=== PATIENT | female | born 1990 | race Caucasian/White ===

== ENCOUNTER 2017-04-16 00:01 | Emergency (ER) | payer BC, OTHER ==
[2017-04-16 00:24] VITALS: BP 112/68
[2017-04-16] MEDS ORDERED: LIDOCAINE 1% INJ-PF (10 MG/ML) 30 ML SDV INJ ONE (01:11)
[2017-04-16] MEDS ORDERED: BUPIVACAINE HCL 0.5 % INJ/PF 30 ML SDV INJ ONE (01:22)
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
[2017-04-16] MEDS ORDERED: CEPHALEXIN 500 MG CAPSULE PO ONE (02:25)
== END 2017-04-16 02:30 | disposition home or self-care (01) ==
LOC: ER 00:01
PROC: 0HQ1XZZ Repair Face Skin, External Approach (ICD-10-PCS; principal; 2017-04-16)
DX: S01.81XA Laceration without foreign body of other part of head, initial encounter (principal); V18.9XXA Unspecified pedal cyclist injured in noncollision transport accident in traffic accident, initial encounter; Y93.55 Activity, bike riding
CPT/HCPCS: 99283